=== PATIENT | female | born 1970 | race Caucasian/White ===

== ENCOUNTER 2017-10-21 17:56 | Emergency (ER) | payer OTHER ==
[~2017-10-21] VITALS: Ht 180.3 cm; Wt 71.2 kg
[~2017-10-21 17:56] MED LIST: ACIDOPHILUS1 EACH PO; BIOTIN2500 MCG PO; BUSPIRONE HCL10 M1 PO; BUSPIRONE10 MG PO; BUTALB-ACETAMI1 EACH PO; CLONAZEPAM0.5 M2 PO; CLONAZEPAM0.5 MG PO; CRESTOR5 M1 PO; CYCLOBENZAPRINE10 M1 PO; DILAUDID2 MG PO; ESCITALOPRAM OX10 MG PO; FIORICET 300 MG1 CAP PO; FISH OIL500 M1 PO; HYDROCHLOROTHIA25 M1 PO; HYDROCODON-ACE1 EAC3 PO; IMITREX PO; KEPPRA750 MG PO; MIRALAX119 GM PO; NAPROSYN 500 M500 MG PO; NEXIUM40 M1 PO; OMEPRAZOLE40 M1 PO; PROTONIX 40MG T40 MG PO; REGLAN5 M1 PO; RELPAX40 M1 PO; RISPERDAL1 M1 PO; TOPAMAX200 M1 PO; TOPAMAX200 MG PO; VITAMIN B-121000 MC3 PO; VITAMIN D31000 UNI1 PO; ZOLPIDEM TARTRA10 M1 PO
--- NOTE | 2017-10-21 19:50 | RADIOLOGY REPORT ---
EXAMINATION: XR RIBS, RIGHT 3 VIEWS CHEST 2 VIEWS AND RIGHT FOOT 3 VIEWS CLINICAL INFORMATION: Pain. Assess for fracture COMPARISON: None TECHNIQUE: As above FINDINGS: Lungs are clear. No consolidation, pneumothorax, or pleural effusion. The cardiomediastinal silhouette and pulmonary vasculature are normal. No pneumothorax. No measurable fracture. Osseous structures are unremarkable. Ribs are intact. No fractures are identified. Right foot demonstrates no definite fracture. Mild hallux valgus deformity and bunion formation noted incidentally. Fifth metatarsal bone normal. Early calcaneal spurring. IMPRESSION: No fracture. Chronic findings as above.
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
--- NOTE | 2017-10-21 21:07 | CT SCAN REPORT ---
EXAMINATION: CT HEAD WITHOUT CONTRAST CLINICAL INFORMATION: Head trauma. Headache. COMPARISON: None TECHNIQUE: Contiguous axial imaging was performed from the skull base to vertex without intravenous administration of contrast. DLP: 613.6 mGy-cm FINDINGS: There is no evidence of acute intracranial hemorrhage or territorial infarction. No abnormal mass effect or midline shift is seen. Mistry to white matter differentiation is well preserved. No extra-axial fluid collections are identified. The ventricles are normal in size. There is no abnormal attenuation within the brain parenchyma. The osseous structures and soft tissues are normal. The mastoid air cells and visualized portions of the paranasal sinuses are well aerated. IMPRESSION: No acute intracranial pathology.
[2017-10-21 21:30] VITALS: BP 111/65
== END 2017-10-21 21:47 ==
LOC: ERH 17:56
DX: S09.90XA Unspecified injury of head, initial encounter (principal); S20.211A Contusion of right front wall of thorax, initial encounter; M79.671 Pain in right foot; W10.9XXA Fall (on) (from) unspecified stairs and steps, initial encounter; Y93.01 Activity, walking, marching and hiking; Y92.26 Movie house or cinema as the place of occurrence of the external cause
CPT/HCPCS: 71046; 71100-RT; 73630-RT; J3101